=== PATIENT | female | born 1955 | race Caucasian/White ===

== ENCOUNTER → 2018-11-05 11:26 | Outpatient (CLI) | payer MEDICAID ==
[2013-07-09 13:46] VITALS: BMI 21.2
[~2018-11-05 11:26] MED LIST: CARAFATE1 G PO; CARDIZEM CD120 MG PO; MACROBID100 MG PO; NEXIUM40 MG PO; NORCO 10/325 TA1 TA1 PO; SOMA250 MG PO
== END | disposition home or self-care (01) ==
LOC: D.HCCARDIO 11:00
PROVIDERS: ATTEND Internal Medicine Cardiovascular Disease
DX: I34.0 Nonrheumatic mitral (valve) insufficiency (principal)

== ENCOUNTER → 2020-10-01 21:52 | Outpatient (CLI) | payer MEDICARE, MEDICAID ==
[2013-07-09 13:46] VITALS: BMI 21.2
== END | disposition home or self-care (01) ==
LOC: D.MAMMO 09-22 14:15
PROVIDERS: ATTEND Family Medicine
DX: Z12.31 Encounter for screening mammogram for malignant neoplasm of breast (principal)